=== PATIENT | female | born 1950 | race Caucasian/White ===

== ENCOUNTER → 2018-07-08 | Outpatient (CLI) | payer BC | END | disposition home or self-care (01) | LOC: RAH 12:52 | PROVIDERS: ATTEND Obstetrics & Gynecology | DX: Z12.31 Encounter for screening mammogram for malignant neoplasm of breast (principal) | CPT/HCPCS: 77067 ==

== ENCOUNTER → 2019-10-15 | Outpatient (CLI) | payer BC, MEDICARE | END | disposition home or self-care (01) | LOC: RAH 12:51 | PROVIDERS: ATTEND Obstetrics & Gynecology | DX: Z12.31 Encounter for screening mammogram for malignant neoplasm of breast (principal) | CPT/HCPCS: 77067 ==

== ENCOUNTER 2020-08-17 10:00 | Observation (INO) | payer BC ==
[~2020-08-17] VITALS: Ht 160 cm; Wt 63.5 kg
[2020-08-18 10:57] LABS: BASOPHILS % (AUTO) 1.2 % (0.0-5.0); EOSINOPHILS % (AUTO) 0.9 % (0.0-8.0); HEMATOCRIT 41.7 % (36-48); LYMPHOCYTES % (AUTO) 29.7 % (21.0-51.0); MEAN CORPUSCULAR HEMOGLOBIN 29.8 pg (27.0-33.0); MEAN CORPUSCULAR HGB CONC 33.6 g/dL (32.0-36.0); MEAN CORPUSCULAR VOLUME 88.7 fL (79-99); MONOCYTES % (AUTO) 8.1 % (3.0-13.0); NEUTROPHILS % (AUTO) 59.8 % (40.0-77.0); PLATELET COUNT (AUTO) 415 K/uL (130-400); RED CELL DISTRIBUTION WIDTH 12.5 % (11.0-15.5); WHITE BLOOD COUNT (AUTO) 7.8 K/uL (4.8-10.8)
[2020-08-18 11:07] LABS: CREATININE 0.8 mg/dL (0.5-1.5); POTASSIUM 4.5 mmol/L (3.5-5.1)
[2020-08-21 09:42] VITALS: BP 101/75
[2020-08-24] MEDS ORDERED: EZET10TA13 PO (12:00)
[2020-08-24] MEDS ORDERED: ROSU10TA22 PO (12:00)
[2020-08-25] VITALS (23 sets, daily range): BP systolic 105–137; BP diastolic 53–93
[2020-08-25] MEDS: CEFAZOLIN SODIUM 1 GM VIAL IVP SCH ×4 (05:00→16:00)
[2020-08-25] MEDS ORDERED: LACTATED RINGERS 1000ML 1,000 ML IV ONE (06:38)
[2020-08-25] MEDS ORDERED: CEFAZOLIN SODIUM 1 GM VIAL ONE (06:45)
[2020-08-25] MEDS ORDERED: THROMBIN-JMI 20000 UNIT KIT TP ONE (06:46)
[2020-08-25] MEDS ORDERED: DURAMORPH PF1 MG/ML 10ML AMP IV ONE (06:46)
[2020-08-25] MEDS ORDERED: BUPIVACAINE/EPI/PF 0.5% 30ML VIAL IJ ONE (06:46)
[2020-08-25] MEDS ORDERED: SUCCINYLCHOLINE CHLORIDE 20 MG/ML 10 ML VIAL ONE (06:50)
[2020-08-25] MEDS ORDERED: LIDOCAINE PF 2% 5ML ABBOJECT ONE (06:50)
[2020-08-25] MEDS ORDERED: PROPOFOL 10 MG/ML 20ML VIAL IV ONE (06:51)
[2020-08-25] MEDS ORDERED: GLYCOPYRROLATE 1 MG/5 ML SYRINGE ONE (06:51)
[2020-08-25] MEDS ORDERED: MIDAZOLAM HCL 1 MG/ML 2ML VIAL ONE (06:51)
[2020-08-25] MEDS ORDERED: DEXAMETHASONE SOD PHOSPHATE 10MG/ML 1ML VIAL ONE ×2 (06:51→06:55)
[2020-08-25] MEDS ORDERED: NEOSTIGMINE 5MG/5ML SYR IV ONE (06:52)
[2020-08-25] MEDS ORDERED: ROCURONIUM 10MG/1ML SYR 10 MG/ML ML ONE (06:52)
[2020-08-25] MEDS ORDERED: ONDANSETRON HCL 4 MG/2 ML VIAL ONE ×3 (06:52→10:57)
[2020-08-25] MEDS ORDERED: FENTANYL CITRATE PF 50 MCG/1 ML 2ML VIAL ONE ×2 (06:52→08:27)
[2020-08-25] MEDS ORDERED: SODIUM CHLORIDE 0.9% 10 ML VIAL IVP PRN (10:30)
[2020-08-25] MEDS ORDERED: PROMETHAZINE HCL 25 MG/ML 1ML AMPULE IM PRN (10:30)
[2020-08-25] MEDS ORDERED: HYDROCODONE/ACETAMINOPHEN 5/325 MG TAB PO PRN (10:30)
[2020-08-25] MEDS: DEXAMETHASONE SOD PHOSPHATE 4 MG/ML 1ML VIAL IVP SCH ×3 (10:30→22:49)
[2020-08-25] MEDS ORDERED: MORPHINE SULFATE 2 MG/ML 1ML SYG IVP PRN (10:30)
[2020-08-25] MEDS ORDERED: MEPERIDINE-PF 25 MG/ML SYG ONE (10:57)
[2020-08-25] MEDS: LACTATED RINGERS 1000ML 1,000 ML IV SCH ×2 (11:30→19:27)
[2020-08-25] MEDS: ATORVASTATIN CALCIUM 20 MG TABLET PO SCH ×2 (11:59→19:27)
[2020-08-25] MEDS ORDERED: EZETIMIBE 10 MG TAB PO SCH (12:00)
--- NOTE | 2020-08-25 20:00 | NUR ---
ACTIVITY/EDUCATION PATIENT NAUSEA SUBSIDED, C/O SLEEPINESS SECONDARY TO PHENERGAN, PATIENT AWAKE, ALERT, OX3, NO SOB, NO C/O PAIN AT THIS TIME, F/C TO GRAVITY DRAINAGE WITH CLEAR YELLOW URINE, DRESSING LUMBAR AREA D/I, AMBULATE IN THE HALLWAY, STEADY GAIT, NO C/O Pain , tolerated well back to bed
--- NOTE | 2020-08-25 20:50 | NUR ---
ACTIVITY AMBULATED IN THE HALLWAY, STEADY GAIT, C/O NAUSEA NO VOMITING AMBULATED BACK TO BED, TOLERATED WELL, BACK TO BED, IVF INFUSING WELL, F/C TO GRAVITY DRAINAGE WITH CLEAR YELLOW URINE
[2020-08-26 00:07] VITALS: BP 107/49
[2020-08-26 03:49] VITALS: BP 113/53
[2020-08-26] MEDS: DEXAMETHASONE SOD PHOSPHATE 4 MG/ML 1ML VIAL IVP SCH ×2 (04:30→10:30)
--- NOTE | 2020-08-26 06:00 | NUR ---
F/C F/C DISCONTINUED, TOLERATED WELL,[employer]EMALE [employer]SULT[employer] PRESENT EARL MARTINEZ , AMBULATED AROUND NURSES STATIONS, TOLERATED WELL, NO C/O PAIN AT THIS TIME, BACK TO BED, DTV, INSTRUCT PATIENT TO CALL NURSE WHEN URGE TO VOID , PATIENT VERBALIZES UNDERSTANDING VIA TEACH BACK,CALL MIGUEL AT REACH
[2020-08-26 07:45] VITALS: BP 103/64
--- NOTE | 2020-08-26 12:45 | NUR ---
NOTE DISCHARGE INSTRUCTIONS GIVEN TO PATIENT AT THIS TIME. REFER TO DC SUMMARY FOR DETAILS.
== END 2020-08-26 13:00 | disposition home or self-care (01) ==
LOC: EDSTATUS 10:00 → DAHIP 08-25 05:52 → 3BH 08-25 11:15
PROVIDERS: ADMIT Neurological Surgery; ATTEND Neurological Surgery
DX: M51.16 Intervertebral disc disorders with radiculopathy, lumbar region (principal); Z20.828 Contact with and (suspected) exposure to other viral communicable diseases; I48.91 Unspecified atrial fibrillation; E78.5 Hyperlipidemia, unspecified; Z79.899 Other long term (current) drug therapy
CPT/HCPCS: 36415; 63047; 71045; 72020; 80048; 85025; 96361 ×2; 96372; 96374; 96375; 96376 ×2; A4215; A4221; A4222; A4223; A4344; A4510; A4600; A4649 ×2; A4657; A6260; G0378 ×27; J0330; J0690 ×3; J1100 ×5; J2001; J2175; J2250; J2274; J2405 ×3; J2550; J2704; J2710; J3010 ×2; J3490 ×2; J7030 ×2; J7120 ×3; U0003

== ENCOUNTER → 2020-11-19 | Outpatient (CLI) | payer BC ==
[~2020-11-19] MED LIST: EZET10TA13 PO; ROSU10TA22 PO
== END | disposition home or self-care (01) ==
LOC: RAH 14:12
PROVIDERS: ATTEND Obstetrics & Gynecology
DX: Z12.31 Encounter for screening mammogram for malignant neoplasm of breast (principal); N64.89 Other specified disorders of breast
CPT/HCPCS: 77067